=== PATIENT | male | born 1995 | race Caucasian/White ===

== ENCOUNTER 2019-05-25 13:07 | Emergency (ER) | payer OTHER ==
[~2019-05-25] VITALS: Ht 177.8 cm; Wt 59.1 kg
[2019-05-25] MEDS ORDERED: KETOROLAC 30 MG/ML VIAL IVP ONE (13:30)
--- NOTE | 2019-05-25 13:37 | ED Chest Pain ---
General Stated Complaint: CHEST PAIN Source: patient Exam Limitations: no limitations History of Present Illness Date Seen by Provider: May 25, 2019 Time Seen by Provider: 13:22 Initial Comments Patient resents to ER by private conveyance with chief complaint of left upper chest pain radiating to his left shoulder feeling of pressure. He is not having any pain right now. He says been persistent for the past week and a half. Does not ever go away. Supposedly some tingling in his fingertips. He is having any pain in his neck no injuries or trauma. No history of coronary disease or blood pressure. He does not follow routinely with a primary care doctor. He has familial history of mom and dad both with hypertension but no coronary disease and circling no early onset cardiac failure. He is not having any shortness of breath but he says sometimes he does get short of breath and hematemesis to panic attacks. He has a history of panic attacks. He says this is more persistent and long-lasting and is different. He did stop smoking weed about a week and a half ago. He says he's been fairly chronic habitual marijuana user for the past 7 years. He does not smoke cigarettes nor does he drink alcohol or use other recreational drugs. He does not feel short of breath was having a cough fever chills weakness, nausea vomiting sweats. He does occasionally have night sweats since quitting the weed but he attributes that to stop weed. He is not having problems with his bowels or bladder. No other significant medical history. Does not take any medications. He has not tried anything for his symptoms. He has not seen anyone for his symptoms. He used to live in [place], [place] and is down here for school. Allergies and Home Medications Allergies Coded Allergies: No Known Drug Allergies (Unverified , 05/25/19) Patient Home Medication List Home Medication List Reviewed: Yes Review of Systems Review of Systems Constitutional: No chills, No diaphoresis EENTM: No Blurred Vision, No Double Vision Respiratory: Denies Cough, Denies Shortness of Air Cardiovascular: See HPI, Chest Pain; Denies Edema, Denies Irregular Heart Rate, Denies Lightheadedness; Palpitations Gastrointestinal: Denies Abdomen Distended, Denies Abdominal Pain, Denies Constipated, Denies Diarrhea, Denies Nausea Genitourinary: Denies Burning, Denies Discharge Musculoskeletal: No back pain, No joint pain All Other Systems Reviewed Negative Unless Noted: Yes Physical Exam Vital Signs Vital Signs - First Documented Capillary Refill : Height, Weight, BMI Height: '" Weight: lbs. oz. kg; BMI Method: General Appearance: WD/WN, Anxious, Thin HEENT: PERRL/EOMI, Normal ENT Inspection, Pharynx Normal, Moist Mucous Membranes Neck: Full Range of Motion, Normal Inspection, Non Tender, Supple Respiratory: Chest Non Tender, Lungs Clear, Normal Breath Sounds, No Accessory Muscle Use, No Respiratory Distress Cardiovascular: Regular Rate, Rhythm, No Edema, No Gallop, No JVD, No Murmur, Normal Peripheral Pulses Gastrointestinal: Normal Bowel Sounds, Non Tender, Soft Extremity: Normal Capillary Refill, Normal Inspection, No Pedal Edema Neurologic/Psychiatric: Alert, Oriented x3, Other (fairly anxious affect) Skin: Normal Color, Warm/Dry Progress/Results/Core Measures Results/Orders Lab Results Laboratory Tests Test 05/25/19 13:28 Range/Units White Blood Count 3.9 L 4.3-11.0 10^3/uL Red Blood Count 5.05 4.35-5.85 10^6/uL Hemoglobin 14.8 13.3-17.7 G/DL Hematocrit 44 40-54 % Mean Corpuscular Volume 87 80-99 FL Mean Corpuscular Hemoglobin 29 25-34 PG Mean Corpuscular Hemoglobin Concent 34 32-36 G/DL Red Cell Distribution Width 12.5 10.0-14.5 % Platelet Count 203 130-400 10^3/uL Mean Platelet Volume 11.0 H 7.4-10.4 FL Neutrophils (%) (Auto) 48 42-75 % Lymphocytes (%) (Auto) 36 12-44 % Monocytes (%) (Auto) 13 H 0-12 % Eosinophils (%) (Auto) 4 0-10 % Basophils (%) (Auto) 1 0-10 % Neutrophils # (Auto) 1.9 1.8-7.8 X 10^3 Lymphocytes # (Auto) 1.4 1.0-4.0 X 10^3 Monocytes # (Auto) 0.5 0.0-1.0 X 10^3 Eosinophils # (Auto) 0.1 0.0-0.3 10^3/uL Basophils # (Auto) 0.0 0.0-0.1 10^3/uL Erythrocyte Sedimentation Rate 1 0-15 MM/HR Sodium Level 141 135-145 MMOL/L Potassium Level 3.9 3.6-5.0 MMOL/L Chloride Level 107 98-107 MMOL/L Carbon Dioxide Level 24 21-32 MMOL/L Anion Gap 10 5-14 MMOL/L Blood Urea Nitrogen 15 7-18 MG/DL Creatinine 0.79 0.60-1.30 MG/DL Estimat Glomerular Filtration Rate > 60 BUN/Creatinine Ratio 19 Glucose Level 97 70-105 MG/DL Calcium Level 9.4 8.5-10.1 MG/DL Corrected Calcium 8.5-10.1 MG/DL Total Bilirubin 1.1 H 0.1-1.0 MG/DL Aspartate Amino Transf (AST/SGOT) 18 5-34 U/L Alanine Aminotransferase (ALT/SGPT) 14 0-55 U/L Alkaline Phosphatase 63 40-136 U/L Troponin I < 0.028 <0.028 NG/ML C-Reactive Protein High Sensitivity 0.02 0.00-0.50 MG/DL Total Protein 7.5 6.4-8.2 GM/DL Albumin 4.8 H 3.2-4.5 GM/DL My Orders Orders - ANTONIO WHITING Continuous Ekg Monitoring (05/25/19 13:20) Ekg Tracing (05/25/19 13:20) Ketorolac Injection (Toradol Injection) (05/25/19 13:30) Cbc With Automated Diff (05/25/19 13:30) Comprehensive Metabolic Panel (05/25/19 13:30) Hs C Reactive Protein (05/25/19 13:30) Erythrocyte Sedimentation Rate (05/25/19 13:30) Chest Pa/Lat (2 View) (05/25/19 13:30) Troponin I (05/25/19 13:30) Medications Given in ED Current Medications Medications Dose Ordered Sig/Yaneli Route Start Time Stop Time Status Last Admin Dose Admin Ketorolac Tromethamine 30 mg ONCE ONCE IVP 05/25/19 13:30 05/25/19 13:32 DC 05/25/19 13:42 30 MG Vital Signs/I&O 05/25/19 05/25/19 13:12 13:12 Temp 36.4 Pulse 63 Resp 18 B/P (MAP) 121/84 (96) Pulse Ox 99 O2 Delivery Room Air Room Air Progress Progress Note #1: Time: 13:35 Progress Note Certainly his history of anxiety and recently quitting marijuana usage can be contributing to his persistent left chest pressure. He doesn't seem to have any pain in his neck or reproducible tenderness on palpation of his chest shoulder or neck. An x-ray will rule out pneumonias, pneumothorax, etc. Labs and help rule out pericarditis/myocarditis, infection, pleurisy, or other acute findings. He has no reason to suspect pulmonary embolism. He is not tachycardic and has no hypoxia. We will trial some Toradol which would help if he's having inflammatory/ osteoarthritis shoulder pain. ESR and CRP. He has no abdominal tenderness to suggest GERD, gallbladder involvement etc. If our initial workup his normal then we will suggest follow-up with the [facility]. Progress Note #2: Time: 15:28 Progress Note The patient is without pain or pressure and has full range motion of his left shoulder and neck on reexamination. Pattern Clerk him on naproxen and have him follow-up with primary care. Initial ECG Impression Date: May 25, 2019 Initial ECG Impression Time: 13:16 Initial ECG Rate: 45 Initial ECG Rhythm: Normal Sinus Initial ECG Intervals: Normal Initial ECG Impression: Normal, Nonspecific Changes Initial ECG Comparisson: No Previous ECG Available Comment No clinically relevant ST elevation or depression. Normal sinus Diagnostic Imaging Diagonstic Imaging: Xray Plain Films/CT/US/NM/MRI: chest (2v) Comments [facility], [place] NAME: PRIYARADHA W MED REC#: [id number] PT STATUS: REG ER : 1995 PHYSICIAN: ANTONIO WHITING MD ADMIT DATE: 05/25/19/ER Signed Date of Exam:05/25/19 CHEST PA/LAT (2 VIEW) INDICATION: Left-sided chest pain. EXAMINATION: PA and lateral chest. FINDINGS: The heart size and pulmonary vascularity are normal. The lungs are clear. There are no effusions or pneumothoraces. IMPRESSION: Negative chest. Dictated by: Dictated on workstation # [id number] Dict: 05/25/19 1125 Trans: 05/25/19 1026 [id number] Interpreted by: EMERITA VALDIVIA MD Electronically signed by: EMERITA VALDIVIA MD 05/25/19 1458 Reviewed: Reviewed by Me Departure Impression Primary Impression: Costochondritis Disposition: HOME, SELF-CARE Condition: Stable Departure-Patient Inst. Decision time for Depature: 15:25 Referrals: [facility] [place] (PCP) Primary Care Physician WANDA DOHERTY MD Patient Instructions: Active Range of Motion Exercises, Neck and Shoulders, Chest Pain That Is Not Caused by the Heart (DC) Add. Discharge Instructions: Please follow-up with a primary care provider such as [facility]. Discuss your symptoms and how the naproxen helped. Start taking the naproxen 500 mg twice a day for the next week. If you start to have acid indigestion or reflux then stop taking the naproxen and follow-up with your primary provider. Scripts Naproxen (Naprosyn) 500 Mg Tablet 500 MG PO BID, #14 TAB 0 Refills Prov: ANTONIO WHITING 05/25/19 ANTONIO WHITING May 25, 2019 13:37
[2019-05-25 13:47] LABS: BASOPHILS % (AUTO) 1 % (0-10); EOSINOPHILS # (AUTO) 0.1 10^3/uL (0.0-0.3); EOSINOPHILS % (AUTO) 4 % (0-10); HEMATOCRIT 44 % (40-54); HEMOGLOBIN 14.8 G/DL (13.3-17.7); LYMPHOCYTES # (AUTO) 1.4 X 10^3 (1.0-4.0); LYMPHOCYTES % (AUTO) 36 % (12-44); MEAN CORPUSCULAR HEMOGLOBIN 29 PG (25-34); MEAN CORPUSCULAR HGB CONC 34 G/DL (32-36); MEAN CORPUSCULAR VOLUME 87 FL (80-99); MONOCYTES # (AUTO) 0.5 X 10^3 (0.0-1.0); MONOCYTES % (AUTO) 13 % (0-12); NEUTROPHILS # (AUTO) 1.9 X 10^3 (1.8-7.8); NEUTROPHILS % (AUTO) 48 % (42-75); PLATELET COUNT 203 10^3/uL (130-400); RED CELL DISTRIBUTION WIDTH 12.5 % (10.0-14.5); WHITE BLOOD COUNT 3.9 10^3/uL (4.3-11.0)
--- NOTE | 2019-05-25 14:00 | Diagnostic Imaging Report ---
INDICATION: Left-sided chest pain. EXAMINATION: PA and lateral chest. FINDINGS: The heart size and pulmonary vascularity are normal. The lungs are clear. There are no effusions or pneumothoraces. IMPRESSION: Negative chest. Dictated by: Dictated on workstation # [id number]
[2019-05-25 14:01] LABS: ALANINE AMINOTRANSFERASE 14 U/L (0-55); ALBUMIN 4.8 GM/DL (3.2-4.5); ALKALINE PHOSPHATASE 63 U/L (40-136); BILIRUBIN,TOTAL 1.1 MG/DL (0.1-1.0); BUN/CREATININE RATIO 19; CALCIUM 9.4 MG/DL (8.5-10.1); CARBON DIOXIDE 24 MMOL/L (21-32); CHLORIDE 107 MMOL/L (98-107); CREATININE SERUM 0.79 MG/DL (0.60-1.30); GFR ESTIMATED > 60; GLUCOSE 97 MG/DL (70-105); POTASSIUM 3.9 MMOL/L (3.6-5.0); SODIUM 141 MMOL/L (135-145); TOTAL PROTEIN 7.5 GM/DL (6.4-8.2)
[2019-05-25 14:20] LABS: ERYTHROCYTE SEDIMENTATION RATE 1 MM/HR (0-15)
[2019-05-25] MEDS ORDERED: NAPR-1071 PO (15:30)
[2019-05-25 15:36] VITALS: BP 104/61
== END 2019-05-25 15:36 | disposition home or self-care (01) ==
LOC: ER 13:09
DX: M94.0 Chondrocostal junction syndrome [Tietze] (principal)
CPT/HCPCS: 36415; 71046; 80053; 84484; 85025; 85652; 86141; 93005; 96374